=== PATIENT | female | born 1975 | race Caucasian/White ===

== ENCOUNTER → 2021-12-06 12:54 | Outpatient (CLI) | payer BC, SELFPAY ==
--- NOTE | ~2021-12-06 | CT_ITS ---
EXAMINATION: CT soft tissue neck w con DATE: 12/06/2021 13:44 INDICATION: Left neck swelling. Lymphadenopathy. TECHNIQUE: Computed tomography (CT) of the neck was performed with 75 mL Omnipaque-350 intravenous co ntrast. Automated exposure control and iterative reconstruction technique were employed. The dose-aruna gth product was 347.61 mGy-cm. COMPARISON: None FINDINGS: There are no pathologically enlarged lymph nodes. There is 0% stenosis of the proximal inte rnal carotid arteries relative to normal distal artery lumen diameters. There is mild mucosal thicken ing in the paranasal sinuses. The mastoid air cells are normal. There is mild thoracic spondylosis. IMPRESSION: 1. No abnormal neck mass or lymphadenopathy. Reviewed, dictated and finalized at location A. UGATED BOX MACHINE OPERATOR
--- NOTE | ~2021-12-06 | CT_ITS ---
EXAMINATION: CT sinus wo con DATE: 12/06/2021 13:45 INDICATION: Recurrent sinusitis TECHNIQUE: Computed tomography (CT) of the paranasal sinuses was performed without contrast. Iterativ e reconstruction technique was employed. Exam dose: 274.70 mGy-cm total exam DLP. COMPARISON: None FINDINGS: Leftward deviation of the nasal septum. The nasal turbinates are moderately prominent, relatively symmetric in size. The ostiomeatal units are patent. There is minimal mucoperiosteal thickening of the frontal sinuses. There is mild mucoperiosteal thick ening in the lower maxillary sinuses. There is normal development and aeration of the mastoid air cells. IMPRESSION: Mild mucoperiosteal thickening of the lower maxillary sinuses and minimal bilateral fron bernardo sinus soft tissue thickening Reviewed, dictated and finalized at [facility]. Reviewed, dictated and finalized at location A. CTOR OF DEVELOPMENT IMPRESSION: Mild mucoperiosteal thickening of the lower maxillary sinuses and minimal bilateral frontal sinus soft tissue thickening
--- NOTE | ~2021-12-06 | CT_ITS ---
EXAMINATION: CT pelvis w con DATE: 12/06/2021 13:44 INDICATION: Pelvic pain. Inguinal lymphadenopathy. TECHNIQUE: Computed tomography (CT) of the pelvis was performed with 100 mL Omnipaque 350 intravenous contrast. Automated exposure control and iterative reconstruction technique were employed. The dose- length product was 613.21 mGy-cm. COMPARISON: None FINDINGS: There are no dilated loops of bowel. There is a 5 mm cyst in left kidney. There are no path ologically enlarged lymph nodes. There is physiologic fluid in the pelvis. The bones are unremarkable . IMPRESSION: 1. No lymphadenopathy. Reviewed, dictated and finalized at location A. CORPORATE RECRUITER IMPRESSION: 1. No lymphadenopathy.
== END ==
PROVIDERS: PCP Physician Assistant Medical; Visit Provider Physician Assistant Medical
DX: J32.9 Chronic sinusitis, unspecified (principal)
CPT/HCPCS: 70486; 70491; 72193; Q9967